=== PATIENT | male | born 1955 | race Caucasian/White ===

== ENCOUNTER 2018-09-29 07:09 | Day surgery (SDC) | payer BC ==
[2018-09-29] MEDS ORDERED: Midazolam 1 MG/ML 2 ML SDV IV ONE (07:10)
[2018-09-29] MEDS ORDERED: Lidocaine 2% 100 MG/5 ML Syringe IVPUSH ONE (07:10)
[2018-09-29] MEDS ORDERED: Propofol 200 MG/20 ML SDV IV ONE (07:10)
[2018-09-29] MEDS ORDERED: Sodium Chloride 0.9% 10 ML Syringe FLUSH PRN (07:15)
[2018-09-29] MEDS ORDERED: Lactated Ringers 1,000 ML IV SCH (07:15)
--- NOTE | 2018-09-29 08:56 | PCM.OPNOTE ---
- General Post-Op/Procedure Note Date of Surgery/Procedure: 09/29/18 Operative Procedure(s): egd with bx Findings: gastroduodenitis esophageal varices Pre Op Diagnosis: Hx of COONEY esophageal varices with banding. Post-Op Diagnosis: gastroduodenitis. esophageal varices Anesthesia Technique: MAC Primary Surgeon: Kristofer Velazquez Anesthesia Provider: Mary Navarro Pathology: stomach and duodenum Complications: None Condition: Good Free Text/Narrative:: see dictation
[2018-09-29 09:46] VITALS: BP 113/61; PULSE 69
--- NOTE | 2018-09-29 10:56 | OR ---
DATE OF OPERATION: 09/29/2018 SURGEON: Kristofer Velazquez MD PROCEDURE PERFORMED: Esophagogastroduodenoscopy with cold forceps biopsy. PREOPERATIVE DIAGNOSIS: History of nonalcoholic steatohepatitis and hep C with esophageal varices. POSTOPERATIVE DIAGNOSIS: Esophageal varices and gastric duodenitis. INDICATIONS FOR PROCEDURE: This is a 63-year-old white male who underwent a banding for esophageal varices secondary to the above mentioned hepatic diseases at [place]. Followup endoscopy was recommended at this time. DESCRIPTION OF OPERATION: After an excellent IV sedation was administered, the bite block was inserted. The flexible endoscope was passed without difficulty down the patient's esophagus into the stomach. The stomach was insufflated. The scope passed through the pylorus and second portion of the duodenum and slowly withdrawn. The following findings were noted: Duodenum: First portion duodenitis, photo and biopsies were taken Stomach: Demonstrated diffuse gastritis and several sales service representative biopsies were taken. GE junction measured approximately 40 cm. Esophagus: In the area of the GE junction, there were some varix noted, however, these were not prominent. There were varices noted along the entire length of the esophagus and were actually more prominent in the midesophagus. Master Printer photos were taken and withdrawn the scope to document the size. The stomach was deflated, scope was removed. The patient tolerated the procedure well. /[id number] /CIER[place]
== END 2018-09-29 09:42 | disposition home or self-care (01) ==
LOC: FB.SDS 07:09
PROVIDERS: ATTEND Surgery
DX: K75.81 Nonalcoholic steatohepatitis (NASH) (principal); I85.11 Secondary esophageal varices with bleeding; B19.20 Unspecified viral hepatitis C without hepatic coma; K31.89 Other diseases of stomach and duodenum; K21.9 Gastro-esophageal reflux disease without esophagitis; E11.9 Type 2 diabetes mellitus without complications; E78.00 Pure hypercholesterolemia, unspecified; J45.909 Unspecified asthma, uncomplicated; Z79.51 Long term (current) use of inhaled steroids; Z79.4 Long term (current) use of insulin; Z79.899 Other long term (current) drug therapy; Z98.890 Other specified postprocedural states
CPT/HCPCS: 43239; 82962; 88305; 88342; J2001; J2250; J2704; J7120

== ENCOUNTER 2024-03-01 22:44 | Emergency (ER) | payer MEDICARE ==
[2024-03-01] MEDS ORDERED: Sodium Chloride 0.9% 10 ML Syringe FLUSH PRN (22:54)
[2024-03-01] MEDS: Ondansetron 4 MG/2 ML SDV IVPUSH ONE (23:14)
[2024-03-01] MEDS: Ketorolac 30 MG/ML SDV IVPUSH ONE (23:18)
[2024-03-01] MEDS: Sodium Chloride 0.9% 1,000 ML IV SCH (23:21)
[2024-03-01 23:27] LABS: BLOOD UREA NITROGEN,BUN 36 mg/dL (7-18); BUN/CREATININE RATIO 22.5 (9-20); CALCIUM 9.9 mg/dL (8.6-10.2); CARBON DIOXIDE,CO2 25 mmol/L (21-32); CHLORIDE,CL 106 mmol/L (100-110); CREATININE 1.6 mg/dL (0.70-1.30); EST CRCL DRUG DOSING (CG) 38.97 mL/min; ESTIMATED GFR 47 mL/min (>60); GLUCOSE RANDOM 238 mg/dL (80-116); SODIUM,NA 143 mmol/L (135-145)
[2024-03-01 23:28] LABS: HEMATOCRIT 47.6 % (38.3-50.1); HEMOGLOBIN 16.2 g/dL (12.9-17.7); MEAN CORPUSCULAR HEMOGLOBIN 29.5 pg (27.0-33.3); MEAN CORPUSCULAR HGB CONC 34.1 g/dL (28.7-35.3); MEAN CORPUSCULAR VOLUME 86.6 fL (80.8-98.7); MEAN PLATELET VOLUME 7.8 fL (6.7-11.0); PLATELET COUNT,PLT 172 x10(3)uL (117-477); RED CELL DISTRIBUTION WIDTH 14.8 % (12.4-15.0); WHITE BLOOD CELL COUNT,WBC 12.9 x10-3/uL (3.2-10.1)
[2024-03-01 23:31] LABS: C-REACTIVE PROTEIN 1.25 mg/dL (<0.50)
[2024-03-01] MEDS: Iopamidol 755 Mg/ML 100 ML Bottle IV ONE (23:38)
[2024-03-01 23:42] LABS: A/G RATIO 0.9; ALANINE AMINOTRANSFERASE,ALT 57 U/L (12-36); ALBUMIN 3.7 g/dL (3.2-4.6); ALKALINE PHOSPHATASE 117 IU/L (56-112); ASPARTATE AMNIOTRANSFERASE,AST 16 IU/L (5-25); BILIRUBIN TOTAL 0.9 mg/dL (0.1-1.3); PROTEIN TOTAL,TP 7.8 g/dL (6.0-8.0)
[2024-03-01 23:57] LABS: EOSINOPHILS PERCENT MAN 6 % (0-5); LYMPHOCYTES PERCENT MAN 2 % (13-37); MONOCYTES PERCENT MAN 3 % (4-12); SEG NEUTROPHILS PERCENT MAN 89 % (46-82)
[2024-03-02] MEDS: Morphine 2 MG/ML SYRINGE IVPUSH ONE (00:23)
[2024-03-02] MEDS: Sodium Chloride 0.9% 1,000 ML IV SCH (00:36)
[2024-03-02 01:01] VITALS: BP 144/80; PULSE 87
== END 2024-03-02 02:00 ==
LOC: FB.ED 22:44
DX: K56.609 Unspecified intestinal obstruction, unspecified as to partial versus complete obstruction (principal); K74.60 Unspecified cirrhosis of liver; I85.10 Secondary esophageal varices without bleeding; J45.909 Unspecified asthma, uncomplicated; E11.9 Type 2 diabetes mellitus without complications; Z90.89 Acquired absence of other organs; Z96.659 Presence of unspecified artificial knee joint; Z79.4 Long term (current) use of insulin; Z79.899 Other long term (current) drug therapy
CPT/HCPCS: 36415; 74177; 80053; 83605; 83690; 85025; 86140; 96361; 96374; 96375; 99285-25; J1885; J2270; J2405; J7030; Q9967